=== PATIENT | male | born 1935 | race Caucasian/White ===

== ENCOUNTER → 2016-06-21 | Outpatient (CLI) | payer MEDICARE ==
--- NOTE | 2016-06-21 13:10 | Diagnostic Imaging Report ---
INDICATION: Dyspnea. COMPARISON: 12/23/2011. FINDINGS: Increased bandlike opacities within the left lung base. Decreased pulmonary vascular markings in the lung apices favor emphysema/bullous disease. No confluent consolidation. Mildly hyperaerated lung volume is present. No pleural effusion or pneumothorax. 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 Stable configuration of the sternal wires. IMPRESSION: 1. Increased bandlike opacities in the left lung base favor atelectasis/scar. No confluent consolidation to suggest pneumonia. 2. Decreased pulmonary vascular markings in the lung apices suggest fairly significant emphysema. CT chest may be useful to focally characterize the degree of emphysema. Dictated by: Dictated on workstation # [id number]
== END ==
LOC: LAB 10:35
PROVIDERS: ATTEND Family Medicine
DX: R06.00 Dyspnea, unspecified (principal)
CPT/HCPCS: 71020

== ENCOUNTER → 2016-06-27 | Outpatient (CLI) | payer MEDICARE ==
[2016-06-27 14:39] LABS: ANION GAP 13.5 MEQ/L (3-15); MAGNESIUM* 2.2 mg/dL (1.6-2.3)
--- NOTE | 2016-06-27 14:44 | Diagnostic Imaging Report ---
INDICATION: Congestive failure. Shortness of breath. Comparison with 06/21/2016. FINDINGS: Obstructive interstitial lung disease is again noted. No acute infiltrates have occurred. The heart is not enlarged. Median sternotomy changes are present. The pulmonary vasculature is not increased. No evidence of congestive failure. No consolidated infiltrates. No pneumothorax or pleural effusions. IMPRESSION: Chronic obstructive interstitial lung disease with no acute infiltrates demonstrated. Dictated by: Dictated on workstation # [id number]
== END ==
LOC: LAB 14:04
PROVIDERS: ATTEND Family Medicine
DX: I50.21 Acute systolic (congestive) heart failure (principal); R79.89 Other specified abnormal findings of blood chemistry; E83.42 Hypomagnesemia
CPT/HCPCS: 36415; 71020; 80048; 83735